=== PATIENT | female | born 1990 | race Two or more races ===

== ENCOUNTER 2016-12-10 14:23 | Outpatient (CLI) | payer OTHER | END 2016-12-10 14:24 | disposition home or self-care (01) | DX: Z11.3 Encounter for screening for infections with a predominantly sexual mode of transmission (principal) ==

== ENCOUNTER 2016-12-10 15:47 | Outpatient (CLI) | payer OTHER | END 2016-12-10 15:48 | disposition home or self-care (01) | DX: Z86.32 Personal history of gestational diabetes (principal) ==

== ENCOUNTER 2021-07-25 08:00 | Outpatient (CLI) | payer OTHER | END 2021-07-25 23:59 | LOC: LAB.N 08:00 | PROVIDERS: ATTEND Physician Assistant | DX: R09.89 Other specified symptoms and signs involving the circulatory and respiratory systems (principal) | CPT/HCPCS: 87070 ==

== ENCOUNTER 2023-08-12 08:45 | Outpatient (CLI) | payer SELFPAY ==
[2023-08-12 12:38] LABS: CHOL/HDL RATIO 3.4 (<4.4); CHOLESTEROL 121 mg/dL; HDL CHOLESTEROL 36 mg/dL; LDL CHOLESTEROL,CALCULATED 70 mg/dL; LDL/HDL RATIO 1.9 (<4.4); TRIGLYCERIDES 77 mg/dL (48-352); VLDL CHOLESTEROL 15 mg/dL
[2023-08-12 14:22] LABS: ESTIMATED AVERAGE GLUCOSE 148 mg/dL (70-100); HEMOGLOBIN A1c% 6.8 % (4.27-6.07)
== END 2023-08-12 09:00 | disposition home or self-care (01) ==
LOC: LAB.N 08:45
PROVIDERS: ATTEND Family Medicine
DX: Z86.32 Personal history of gestational diabetes (principal)
CPT/HCPCS: 36415; 80061; 83036; 83721